=== PATIENT | male | born 1960 | race Caucasian/White ===

== ENCOUNTER 2018-03-19 11:32 | Day surgery (SDC) | payer OTHER ==
[~2018-03-19] VITALS: Ht 167.6 cm; Wt 75.3 kg
[~2018-03-19 11:32] MED LIST: ASPI81EC PO; ATOR40TA PO; CARV3.125 PO; LEVSOD50 PO; LISI5 PO; LOSA25 PO; Lipo-Flavonoid1 EACH PO; MAGNESIUM400 M1 PO; METF500 PO; METO50 PO; Norco 5-325 Ta1 EACH PO; PRAV20 PO; TAMS.4ER PO; WARF1 PO; WARF2 PO; WARF3 PO; WARF4 PO
[2018-03-19] MEDS ORDERED: Oxycodone HCl5 M1 (12:20)
== END 2018-03-19 13:29 | disposition home or self-care (01) ==
LOC: ORSCSDS 11:32
PROVIDERS: Internal Medicine Gastroenterology
PROC: 0DBK8ZX Excision of Ascending Colon, Via Natural or Artificial Opening Endoscopic, Diagnostic (ICD-10-PCS; principal; 2018-03-19 13:00)
DX: Z86.010 Personal history of colon polyps (principal); D12.2 Benign neoplasm of ascending colon; K64.8 Other hemorrhoids; K57.30 Diverticulosis of large intestine without perforation or abscess without bleeding; I25.10 Atherosclerotic heart disease of native coronary artery without angina pectoris; I25.2 Old myocardial infarction; Z95.1 Presence of aortocoronary bypass graft; Z86.73 Personal history of transient ischemic attack (TIA), and cerebral infarction without residual deficits; J44.9 Chronic obstructive pulmonary disease, unspecified; I10 Essential (primary) hypertension; E11.9 Type 2 diabetes mellitus without complications; E03.9 Hypothyroidism, unspecified; E78.5 Hyperlipidemia, unspecified; Z87.891 Personal history of nicotine dependence; Z79.82 Long term (current) use of aspirin; Z79.84 Long term (current) use of oral hypoglycemic drugs; Z79.899 Other long term (current) drug therapy
CPT/HCPCS: 82947; 88305; J7120

== ENCOUNTER 2021-10-07 08:11 | Day surgery (SDC) | payer OTHER ==
[~2021-10-07] VITALS: Ht 167.6 cm; Wt 86.5 kg
[~2021-10-07 08:11] MED LIST changes: +CARV25 PO; -LEVSOD50 PO; +LEVSOD75 PO; +Oxycodone HCl5 M1
[2021-10-07] MEDS ORDERED: [UNRECOGNIZED DRUG - REMARK] PO (08:33)
[2021-10-07] MEDS ORDERED: BAYER PO (08:33)
--- NOTE | 2021-10-07 09:04 | NUR ---
10/07/21 0904 Kenia Allen History, Chart, Medications and Allergies reviewed before start of procedure. Patient confirms NPO status and agrees with scheduled surgery. 3-LEAD EKG REVIEWED WITH PHYSICIAN PRIOR TO START OF PROCEDURE. MONITOR INTACT WITH CONTINUOUS PULSE OXIMETRY AND INTERMITTENT BP. PATIENT DETERMINED TO BE ASA APPROPRIATE FOR PROPOFOL SEDATION PRIOR TO START OF PROCEDURE BY
--- NOTE | 2021-10-07 09:04 | NUR ---
PT ADMITTED TO [facility]. AGREES WITH PLANNED PROCEDURE. STATES LAST BM CLEAR YELLOW. LUNG SOUNDS CLEAR.
--- NOTE | 2021-10-07 10:32 | NUR ---
DR TAVARES ORDERD 12 LEAD EKG. ONE DONE, DR. TAVARES CONSULTED. DR. TAVARES ORDERED ONE MORE EKG WITH FURTHER CONSULT. EKG READINGS SENT TO [facility]. ZACKARY MCKENZIE SPOKE WITH [facility] WHO WILL PRINT THE REPORT AND HAVE SUPERVISOR SPECIAL EFFECTS REVIEW. PT LYING CALMLING IN GURNY WITH NO C/O PAIN OR NAUSEA.
--- NOTE | 2021-10-07 11:13 | NUR ---
DR. LEMONS CARDIOLOGY REVIEWED EKG AND STATED PT HAS RETROGRADE P WAVES AND IS OKAY TO DISCHARGE, PT WITH NO S/S OF HEART PROBLEMS. DR. LEMONS ADVISED PT TO CONTINUE TO SEE CURRENT CUSTOMER EXPERIENCE RETAIL CLERK OR TO CONTACT HIM. DR. TAVARES ADVISED AND OKAYED PT FOR DC.
--- NOTE | 2021-10-07 12:04 | NUR ---
Patient up to Ambulate independently. Gait steady. Discharge instructions reviewed with patient. Patient verbalizes understanding. Copy given to patient to take home. Discharged via wheelchair to private car for ride home.
== END 2021-10-10 03:39 | disposition home or self-care (01) ==
LOC: ORSCMMR 08:11 → ORSCSDS 09:15 → ORD 09:15 → ORSCMMR 09:15
PROVIDERS: Student in an Organized Health Care Education/Training Program
PROC: 0DBL8ZX Excision of Transverse Colon, Via Natural or Artificial Opening Endoscopic, Diagnostic (ICD-10-PCS; principal; 2021-10-07 09:15)
PROC: 0DBM8ZX Excision of Descending Colon, Via Natural or Artificial Opening Endoscopic, Diagnostic (ICD-10-PCS; principal; 2021-10-07 09:15)
PROC: 0DBN8ZX Excision of Sigmoid Colon, Via Natural or Artificial Opening Endoscopic, Diagnostic (ICD-10-PCS; principal; 2021-10-07 09:15)
PROC: 0DBE8ZX Excision of Large Intestine, Via Natural or Artificial Opening Endoscopic, Diagnostic (ICD-10-PCS; principal; 2021-10-07 09:15)
PROC: 0DBH8ZX Excision of Cecum, Via Natural or Artificial Opening Endoscopic, Diagnostic (ICD-10-PCS; principal; 2021-10-07 09:15)
DX: Z12.11 Encounter for screening for malignant neoplasm of colon (principal); Z86.010 Personal history of colon polyps; D12.2 Benign neoplasm of ascending colon; D12.0 Benign neoplasm of cecum; D12.3 Benign neoplasm of transverse colon; D12.5 Benign neoplasm of sigmoid colon; K57.30 Diverticulosis of large intestine without perforation or abscess without bleeding; K64.8 Other hemorrhoids; E11.9 Type 2 diabetes mellitus without complications; I25.10 Atherosclerotic heart disease of native coronary artery without angina pectoris; I10 Essential (primary) hypertension; E03.9 Hypothyroidism, unspecified; J44.9 Chronic obstructive pulmonary disease, unspecified; Z79.84 Long term (current) use of oral hypoglycemic drugs; Z79.4 Long term (current) use of insulin; Z79.899 Other long term (current) drug therapy
CPT/HCPCS: 88305; 93005; 93010; J2704; J7120

== ENCOUNTER 2024-09-23 09:17 | Day surgery (SDC) | payer OTHER ==
[~2024-09-23] VITALS: Ht 167.6 cm; Wt 80.0 kg
[~2024-09-23 09:17] MED LIST changes: +BAYER PO; +Lactated Ringer's 1,000 ML IV ONE; +[UNRECOGNIZED DRUG - REMARK] PO; +propofoL 50 ML IV ONE
[2024-09-23] MEDS ORDERED: ATOR40TA (09:41)
[2024-09-23] MEDS ORDERED: JARDIANCE25 MG (09:42)
[2024-09-23] MEDS ORDERED: Amaryl1 MG (09:42)
[2024-09-23] MEDS ORDERED: LOSA25 (09:42)
[2024-09-23] MEDS ORDERED: MAG OXIDE 400MG (09:43)
[2024-09-23] MEDS ORDERED: LEVSOD88 (09:43)
[2024-09-23] MEDS ORDERED: ASPI81CH (09:44)
[2024-09-23] MEDS ORDERED: IPRAT-ALBUT 0.5-3 ML (09:44)
[2024-09-23] MEDS ORDERED: Lactated Ringer's 1,000 ML IV ONE (10:43)
[2024-09-23 12:49] VITALS: BP 123/79
--- NOTE | 2024-09-23 12:59 | NUR ---
09/23/24 1259 Cassandra Claros S PT. WITH SCATTERED WHEEZES THAT CLEAR WITH COUGH. PT. VERBALIZES HE DOES A NEBULIZER Q AM BUT USES NO INHALERS. PT. VERBALIZES HE GETS CONGESTED IN HIS THROAT & AFTER HIS NEBULIZER "I'M GOOD TO GO."
== END 2024-09-23 12:30 | disposition home or self-care (01) ==
LOC: ORSCSDS 09:17
PROVIDERS: Internal Medicine Gastroenterology
PROC: 0DBK8ZX Excision of Ascending Colon, Via Natural or Artificial Opening Endoscopic, Diagnostic (ICD-10-PCS; principal; 2024-09-23 10:45)
PROC: 0DBN8ZX Excision of Sigmoid Colon, Via Natural or Artificial Opening Endoscopic, Diagnostic (ICD-10-PCS; principal; 2024-09-23 10:45)
PROC: 0DBH8ZX Excision of Cecum, Via Natural or Artificial Opening Endoscopic, Diagnostic (ICD-10-PCS; principal; 2024-09-23 10:45)
DX: Z12.11 Encounter for screening for malignant neoplasm of colon (principal); D12.0 Benign neoplasm of cecum; D12.2 Benign neoplasm of ascending colon; D12.5 Benign neoplasm of sigmoid colon; D17.9 Benign lipomatous neoplasm, unspecified; K57.30 Diverticulosis of large intestine without perforation or abscess without bleeding; Z86.0101 Personal history of adenomatous and serrated colon polyps; Z86.73 Personal history of transient ischemic attack (TIA), and cerebral infarction without residual deficits; I25.2 Old myocardial infarction; E11.9 Type 2 diabetes mellitus without complications; I10 Essential (primary) hypertension; E78.5 Hyperlipidemia, unspecified; I25.5 Ischemic cardiomyopathy; I25.10 Atherosclerotic heart disease of native coronary artery without angina pectoris; Z79.82 Long term (current) use of aspirin; Z79.84 Long term (current) use of oral hypoglycemic drugs; Z79.899 Other long term (current) drug therapy; Z87.891 Personal history of nicotine dependence
CPT/HCPCS: 82947; 88305; 93005; 93010; J2704; J7120

== ENCOUNTER 2025-01-14 04:08 | Inpatient (IN) | payer OTHER ==
[~2025-01-14] VITALS: Ht 167.6 cm; Wt 77.7 kg
[~2025-01-14 04:08] MED LIST changes: +ASPI81CH; +ATOR40TA; +Amaryl1 MG; +IPRAT-ALBUT 0.5-3 ML; +JARDIANCE25 MG; +LEVSOD88; +LOSA25; -Lactated Ringer's 1,000 ML IV ONE; +MAG OXIDE 400MG; -propofoL 50 ML IV ONE
[2025-01-14 04:34] LABS: BASOPHILS ABSOLUTE AUTO 0.06 K/mm3 (0.00-0.23); BASOPHILS PERCENT AUTO 1 % (0-2); EOSINOPHILS ABSOLUTE AUTO 0.21 K/mm3 (0.00-0.68); EOSINOPHILS PERCENT AUTO 2 % (0-6); Hemoglobin 16.9 g/dL (13.5-17.5); IMMATURE GRAN ABSOLUTE AUTO 0.06 K/mm3 (0.00-0.10); IMMATURE GRAN PERCENT AUTO 1 % (0-1); LYMPHOCYTES ABSOLUTE AUTO 2.03 K/mm3 (0.84-5.20); LYMPHOCYTES PERCENT AUTO 21 % (21-46); MONOCYTES ABSOLUTE AUTO 0.79 K/mm3 (0.16-1.47); MONOCYTES PERCENT AUTO 8 % (4-13); Mean Corpuscular HGB 29.2 pg (26.0-34.0); Mean Corpuscular HGB Conc 33.1 g/dL (31.5-36.5); Mean Corpuscular Volume 88 fL (80-100); Mean Platelet Volume 10.3 fL (9.1-12.4); NEUTROPHILS ABSOLUTE AUTO 6.45 K/mm3 (1.96-9.15); NEUTROPHILS PERCENT AUTO 67 % (41-73); Platelet Count 230 K/mm3 (150-400); RDW Coefficient Variation 13.5 % (11.7-14.2); RDW Standard Deviation 43.5 fL (35.1-46.3); Red Blood Cell Count 5.78 M/mm3 (4.30-5.90)
[2025-01-14 04:44] LABS: International Normalized Ratio 1.02; Prothrombin Time Results 10.9 Sec (9.7-11.5)
[2025-01-14 04:53] LABS: Alanine Aminotransfer (ALT/SGP 35 U/L (12-78); Albumin, Blood 3.8 g/dL (3.4-5.0); Alk Phos 135 U/L (50-136); Anion Gap 11 mmol/L (3-11); Aspartate Aminotrans (AST/SGOT 26 U/L (12-37); Bilirubin, Total 1.1 mg/dL (0.1-1.0); Blood Urea Nitrogen 23 mg/dL (8-24); Bun/Creatinine Ratio 18.9 (12.0-20.0); CO2, Blood 25 mmol/L (21-32); Calcium, Blood 9.4 mg/dL (8.5-10.1); Chloride, Blood 106 mmol/L (98-108); Creatinine, Blood 1.22 mg/dL (0.60-1.20); Ethanol (Alcohol), Blood, Med <3 mg/dL; Glomerular Filtration Rate 66 (60-); Glucose, Blood 162 mg/dL (70-99); Potassium, Blood 3.7 mmol/L (3.5-5.5); Sodium, Blood 138 mmol/L (136-145); Total Protein, Blood 7.8 g/dL (6.4-8.2)
[2025-01-14] MEDS ORDERED: Ondansetron HCl 2 MG / ML 2ML Vial IV PRN (06:25)
[2025-01-14] MEDS ORDERED: Acetaminophen 325 MG TABLET PO PRN (06:25)
[2025-01-14] MEDS ORDERED: ATROVENT HFA12.9 GM INH (07:09)
[2025-01-14] MEDS ORDERED: LOSARTAN POTASS25 M2 PO (07:09)
[2025-01-14] MEDS ORDERED: LEVOTHYROXINE112 M18 PO (07:09)
[2025-01-14] MEDS ORDERED: METOPROLOL SUCC25 MG PO (07:10)
[2025-01-14] MEDS ORDERED: GLIMEPIRIDE2 M2 PO (07:10)
[2025-01-14] MEDS ORDERED: LIPITOR80 MG PO (07:10)
[2025-01-14] MEDS ORDERED: [UNRECOGNIZED DRUG - CODE] PO (07:10)
[2025-01-14] MEDS ORDERED: JARDIANCE25 MG PO (07:11)
[2025-01-14] MEDS ORDERED: Aspir 8181 MG PO (07:33)
[2025-01-14] MEDS ORDERED: Docusate Sodium 100 MG Cap PO SCH (09:00)
[2025-01-14] MEDS ORDERED: Aspirin 81 MG Chew PO SCH (09:00)
[2025-01-14] MEDS ORDERED: Enoxaparin 40 MG/0.4 ML SYR SC SCH (09:00)
[2025-01-14] MEDS ORDERED: Atorvastatin 40 MG Tab PO SCH (09:00)
--- NOTE | 2025-01-14 09:45 | NUR ---
ADMISSION PT ADMITTED FROM THE ER. TRANSFERED TO BED FROM WHEELCHAIR WITH MINIMAL ASSIST. PT HAS GARBLED SPEECH, BUT IS ORIENTED X4. ORIENTED TO ROOM. CALL LIGHT IN REACH. PT DENIES PAIN AT THIS TIME. NPO WHILE AWAITING FOR SPEECH THERAPY CONSULT. PT DENIES OTHER NEEDS AT THIS TIME.
[2025-01-14 09:48] VITALS: BP 142/91
[2025-01-14 11:34] VITALS: BP 114/78
[2025-01-14] MEDS ORDERED: Ipratropium/Albuterol SulF 2.5-0.5MG/3 ML Amp INH PRN (15:20)
[2025-01-14] MEDS ORDERED: NS 1,000 ML IV SCH (15:20)
[2025-01-14 15:39] VITALS: BP 165/88
[2025-01-14] MEDS ORDERED: IPRATROPIUM BROMIDE INH (17:03)
--- NOTE | 2025-01-14 17:57 | NUR ---
SHIFT SUMMARY PT ADMITTED TODAY. PT HAD MRI COMPLETED TODAY. WORKED WITH PHYSICAL/OCCUPATIONAL THERAPY TODAY. PT AMBULATED THE LOOP ON THE FLOOR WITH PHYSICAL THERAPY AND TOLERATED WELL WITH A LITTLE ASSISTANCE. PT HAS SOME UNCOORDINATION IN RELATION TO HIS L LEG. SPEECH THERAPY IN TO SEE THE PATIENT THIS AFTERNOON, PT REMAINS NPO AT THIS TIME AFTER EVAL. ST WILL BE BACK TOMORROW TO REEVATUATE. DR. MARTÍNEZ NOTIFIED OF CONTINUED NPO STATUS. IV FLUIDS STARTED FOR HYDRATION. PO MEDS HELD T/O SHIFT. PT IS VERY MOTIVATED AND HOPEFUL TO IMPROVE. NO OTHER ACUTE CHANGES IN ASSESSMENT AT THIS TIME. VS REVIEWED. CALL LIGHT IN REACH. DENIES OTHER NEEDS AT THIS TIME.
[2025-01-14] MEDS ORDERED: HydrALAZINE HCl 20 MG / ML 1ML Vial IV PRN (18:35)
[2025-01-14] MEDS ORDERED: Clopidogrel Bisulfate 75 MG Tab PO SCH (19:00)
[2025-01-14 19:52] VITALS: BP 149/83
[2025-01-15] MEDS ORDERED: Insulin Regular 100 UNIT/ML 10ML Vial SC SCH
[2025-01-15 03:55] VITALS: BP 109/80
[2025-01-15 04:51] LABS: BASOPHILS ABSOLUTE AUTO 0.07 K/mm3 (0.00-0.23); BASOPHILS PERCENT AUTO 1 % (0-2); EOSINOPHILS PERCENT AUTO 1 % (0-6); Hematocrit 53.5 % (37.0-53.0); Hemoglobin 17.4 g/dL (13.5-17.5); IMMATURE GRAN ABSOLUTE AUTO 0.02 K/mm3 (0.00-0.10); IMMATURE GRAN PERCENT AUTO 0 % (0-1); LYMPHOCYTES ABSOLUTE AUTO 1.71 K/mm3 (0.84-5.20); LYMPHOCYTES PERCENT AUTO 25 % (21-46); MONOCYTES ABSOLUTE AUTO 0.63 K/mm3 (0.16-1.47); MONOCYTES PERCENT AUTO 9 % (4-13); Mean Corpuscular HGB 29.4 pg (26.0-34.0); Mean Corpuscular HGB Conc 32.5 g/dL (31.5-36.5); Mean Corpuscular Volume 90 fL (80-100); Mean Platelet Volume 10.2 fL (9.1-12.4); NEUTROPHILS ABSOLUTE AUTO 4.43 K/mm3 (1.96-9.15); NEUTROPHILS PERCENT AUTO 64 % (41-73); Platelet Count 218 K/mm3 (150-400); RDW Coefficient Variation 13.6 % (11.7-14.2); RDW Standard Deviation 44.9 fL (35.1-46.3); Red Blood Cell Count 5.92 M/mm3 (4.30-5.90); White Blood Cell Count 6.96 K/mm3 (4.00-11.30)
[2025-01-15 05:20] LABS: Alanine Aminotransfer (ALT/SGP 31 U/L (12-78); Albumin, Blood 3.8 g/dL (3.4-5.0); Alk Phos 126 U/L (50-136); Anion Gap 12 mmol/L (3-11); Aspartate Aminotrans (AST/SGOT 26 U/L (12-37); Bilirubin, Total 1.4 mg/dL (0.1-1.0); Blood Urea Nitrogen 18 mg/dL (8-24); Bun/Creatinine Ratio 15.5 (12.0-20.0); CHOL/HDL RATIO 2.9; CO2, Blood 24 mmol/L (21-32); Calcium, Blood 9.3 mg/dL (8.5-10.1); Chloride, Blood 110 mmol/L (98-108); Cholesterol 129 mg/dL (50-200); Creatinine, Blood 1.16 mg/dL (0.60-1.20); Glomerular Filtration Rate 70 (60-); Glucose, Blood 122 mg/dL (70-99); HDL Cholesterol 44 mg/dL (>39); LDL/HDL RATIO 1.2; Low Density Lipoprotein Chol 52 mg/dL (0-110); Magnesium, Blood 2.2 mg/dL (1.6-2.4); Sodium, Blood 142 mmol/L (136-145); Thyroid Stimulating Hormone 0.693 uIU/mL (0.360-4.800); Total Protein, Blood 7.8 g/dL (6.4-8.2); Triglycerides 166 mg/dL (30-160); Very Low Density Lipoprot Chol 33 mg/dL (6-32)
--- NOTE | 2025-01-15 05:53 | NUR ---
Shift Summary No acute changes. Q4 neuro checks, pt has slight defecits on L side and L sided facial droop, eyes PERRLA, speech mumbled. No change in neuro condition t/o the night. Rcving NS @ 100 as ordered. Pt uses urinal at the bedside independently. He slept well t/o most of the night.
[2025-01-15] MEDS ORDERED: Levothyroxine Sodium 0.112 MG Tab PO SCH (06:00)
[2025-01-15 07:40] VITALS: BP 147/83
[2025-01-15 11:16] VITALS: BP 144/84
[2025-01-15 15:17] VITALS: BP 148/77
--- NOTE | 2025-01-15 18:01 | NUR ---
SHIFT SUMMARY A&O X4. NEUROCHECKS Q4H. LEFT SIDED FACIAL DROOPING REMAINS. PERLA. RIVERA IS MUMBLES. NS RUNNING AT 100ML/HR. SEEN BY NICOLE GAMBOA, REMAINS ON NPO. BARIUM SWALLOW SCHEDULED FOR 01/16. DOBHOFF PLACED IN RIGHT NOSTRIL. TUBE FEEDING INITIATED. HAD VISIT FROM THERAPY DOG. TELE: BBB. BED IN LOW POSITION AND CALL LIGHT WITHIN REACH.
[2025-01-15 19:06] VITALS: BP 149/91
[2025-01-15 23:51] VITALS: BP 118/75
[2025-01-16 04:03] VITALS: BP 132/77
[2025-01-16 05:47] LABS: Magnesium, Blood 2.4 mg/dL (1.6-2.4); Phosphorus, Blood 2.6 mg/dL (2.5-4.9)
--- NOTE | 2025-01-16 05:51 | NUR ---
SHIFT SUMMARY PT SLEPT INTERMITTENTLY DURING THE NIGHT. TOLERATING TUBE FEED AT ORDERED RATE OF 45ML/HR WITH WATER 30ML Q 4HRS. PT DOES HAVE A MOIST COUGH, BUT THIS IS A CHRONIC COUGH. PT EDUCATED TO KEEP HOB ELEVATED WITH THE TUBE FEEDING TO REDUCE THE RISK OF ASPIRATION. PT UP TO THE BATHROOM WITH FWW AND SBA. NEURO CHECKS DONE Q 4HRS WITHOUT CHANGE. PT CONTINUES TO HAVE LEFT SIDED FACIAL DROOP, MUMBLED SPEECH, OCCASIONAL WORD-FINDING DIFFICULTIES, AND SOME SLIGHT LEFT SIDED WEAKNESS. BED IN LOWEST POSITION, CALL LIGHT WITHIN REACH, BED ALARM ON, SIDERAILS UP X2.
[2025-01-16 07:35] VITALS: BP 130/87
[2025-01-16 15:41] VITALS: BP 150/82
--- NOTE | 2025-01-16 18:23 | NUR ---
SHIFT SUMMARY A&O X4. TELE: AFIB @100. NO ACUTE CHANGES. HOLD TUBE FEEDING AFTER MIDNIGHT. SCHEDULED FOR PEG TUBE PLACEMENT AT 0800 ON 01/17/2025. ORDER FOR IV FLUIDS . NEURO CHECKS Q4H. FAMILY IN FOR VISIT. BED IN LOW POSITION. CALLLIGHT WITH REACH
[2025-01-16 20:25] VITALS: BP 140/83
[2025-01-17] VITALS (15 sets, daily range): BP systolic 116–161; BP diastolic 56–89
[2025-01-17 06:03] LABS: Magnesium, Blood 2.2 mg/dL (1.6-2.4); Phosphorus, Blood 3.5 mg/dL (2.5-4.9)
--- NOTE | 2025-01-17 06:34 | NUR ---
SHIFT SUMMARY PT TOLERATED TUBE FEEDING AT ORDERED RATE OF 60ML/HR WITH 200ML WATER FLUSH Q4 UNTIL TUBE FEEDING TURNED OFF AT MIDNIGHT FOR PROCEDURE TODAY. NEURO CHECKS Q4 HRS WITH NO CHANGES NOTED. PT SLEPT INTERMITTENTLY DURING THE NIGHT. BED IN LOWEST POSITION, CALL LIGHT WITHIN REACH, SIDERAILS UP X2.
[2025-01-17] MEDS ORDERED: propofoL 20 ML IV ONE ×2 (07:38→08:52)
[2025-01-17] MEDS ORDERED: Ondansetron HCl 2 MG / ML 2ML Vial ONE ×2 (07:39→09:55)
[2025-01-17] MEDS ORDERED: SuccINYLCHOLINE Chloride 100 MG/5 ML 5MLSYR ONE (07:39)
[2025-01-17] MEDS ORDERED: Lidocaine HCl 2% 20 ML MDV ONE (07:39)
[2025-01-17] MEDS ORDERED: FentaNYL Citrate 50 MCG/ML 2 ML Injection ONE (07:53)
--- NOTE | 2025-01-17 07:54 | NUR ---
NOTE DAY SURG NOTIFIED VIA [facility], GASTROENTEROLOGY PHYSICIAN FOR SURG AT 0830. THEY CAME TO TRANSFER PT AT 0755. PT TRANSFERED VIA BED TO DAY SURG. DAY CLAY ARTIST NOTIFIED TO HOLD COZAR AND METOPROLOL TILL POST SURG.
[2025-01-17 08:00] LABS: BASOPHILS ABSOLUTE AUTO 0.05 K/mm3 (0.00-0.23); BASOPHILS PERCENT AUTO 1 % (0-2); EOSINOPHILS ABSOLUTE AUTO 0.26 K/mm3 (0.00-0.68); EOSINOPHILS PERCENT AUTO 3 % (0-6); Hematocrit 48.5 % (37.0-53.0); Hemoglobin 15.5 g/dL (13.5-17.5); IMMATURE GRAN ABSOLUTE AUTO 0.01 K/mm3 (0.00-0.10); IMMATURE GRAN PERCENT AUTO 0 % (0-1); LYMPHOCYTES ABSOLUTE AUTO 2.06 K/mm3 (0.84-5.20); LYMPHOCYTES PERCENT AUTO 27 % (21-46); MONOCYTES ABSOLUTE AUTO 0.72 K/mm3 (0.16-1.47); MONOCYTES PERCENT AUTO 9 % (4-13); Mean Corpuscular HGB 29.1 pg (26.0-34.0); Mean Corpuscular Volume 91 fL (80-100); Mean Platelet Volume 10.6 fL (9.1-12.4); NEUTROPHILS ABSOLUTE AUTO 4.63 K/mm3 (1.96-9.15); NEUTROPHILS PERCENT AUTO 60 % (41-73); Platelet Count 186 K/mm3 (150-400); RDW Coefficient Variation 13.8 % (11.7-14.2); RDW Standard Deviation 46.5 fL (35.1-46.3); Red Blood Cell Count 5.32 M/mm3 (4.30-5.90); White Blood Cell Count 7.73 K/mm3 (4.00-11.30)
[2025-01-17 08:13] LABS: Albumin, Blood 3.6 g/dL (3.4-5.0); Bilirubin, Total 0.8 mg/dL (0.1-1.0); Bun/Creatinine Ratio 14.9 (12.0-20.0); Calcium, Blood 9.5 mg/dL (8.5-10.1); Creatinine, Blood 0.94 mg/dL (0.60-1.20); Globulin, Blood 3.6 g/dL (2.2-4.0); Potassium, Blood 3.9 mmol/L (3.5-5.5); Total Protein, Blood 7.2 g/dL (6.4-8.2)
[2025-01-17] MEDS ORDERED: Lactated Ringer's 1,000 ML IV SCH (08:20)
[2025-01-17] MEDS ORDERED: Phenylephrine HCl 100 MCG/ML-NS 10MLSYR (1MG/10ML) ONE (08:29)
[2025-01-17] MEDS ORDERED: CeFAZolin Sodium 2,000 MG in NS 100 ML IV SCH (08:35)
[2025-01-17] MEDS ORDERED: Metoprolol Succinate 25 MG TABCR PO SCH (09:00)
[2025-01-17] MEDS ORDERED: Losartan Potassium 25 MG Tab PO SCH (09:00)
--- NOTE | 2025-01-17 09:03 | NUR ---
01/17/25 0903 Shani Renteria MAC CASE WITH DR. CANALES IN OR 2; SEE ANESTHESIA RECORDS.
[2025-01-17] MEDS ORDERED: Lactated Ringer's 1,000 ML IV ONE (09:10)
[2025-01-17] MEDS ORDERED: Dexamethasone Sod Phos 10 MG/ML 1ML VIAL ONE (09:55)
--- NOTE | 2025-01-17 13:02 | NUR ---
NOTE PT BACK FROM OR. NURSE NOTIFY CAN USE PEG TUBE. VERIFIED WITH DR. GILES. PT REPORTES L FLANK PAIN, GOT TYLENOL, NOTIFIED HOSPITALIST.
[2025-01-17] MEDS ORDERED: OxyCODONE HCL 5 MG TAB PO PRN (15:10)
--- NOTE | 2025-01-17 19:34 | NUR ---
SHIFT SUMMARY PT A&OX4. PT ADMITTED DUE TO CVA. NEURO CHECKS COMPLETED Q4. PT HAS L FACIAL DROOP. PT HAD PEG TUBE PLACED TODAY. PT HAS Q6 BLOOD SUGAR CHECK ORDERED. COVERAGE NOT INDICATED TODAY. PT NPO. PT REPORTS CHRONIC PAIN. PAIN MANAGED PER EMAR. FEEDINGS THROUGH PEG TUBE STARTED AT 1500. SUCTION AT BEDSIDE, FOR ORAL CARE. PT ON TELE, TELE REPORTED ST ELEVATION AND DEPRESSION TODAY, DR. WEST NOTIFIED, ORDERED EKG AND TROPONIN LABS. EKG COMPLETE AND REVIEWED BY . NO NEW ORDERS, PT REPORTS NO CHEST PAIN DISCOMFORT. PT IN BED, BED IN LOWEST POSITION, CALL LIGHT IN REACH. VSS. PT IS SBA TO TOILET. PEG TUBE SITE, C/D/I WITH SPLIT GAUZE IN PLACE.
--- NOTE | 2025-01-17 20:29 | NUR ---
CALLED HOSPITALIST TO GET SOMETHING TO HELP PT SLEEP. DR ORDERED 5MG MELATONIN CRUSHED IN PEG TUBE PRN/HS DOSING
[2025-01-17] MEDS ORDERED: Metoprolol Tartrate 25 MG Tab PO SCH ×2 (21:00)
[2025-01-17] MEDS ORDERED: Melatonin 5 MG Tablet PO SCH (21:00)
[2025-01-17] MEDS ORDERED: Metoprolol Tartrate 25 MG Tab PT SCH (21:00)
--- NOTE | 2025-01-18 04:38 | NUR ---
SHIFT SUMM: PT IS A 64 YO FULL CODE MALE ADMITTED FOR CVA AND L SIDED WEAKNESS. PT IS A&OX4 W/SLURRED HARD TO UNDERSTAND SPEECH FROM CVA. PT FAILED SWALLOW STUDY AND HAS DYSPHAGIA SO PEG TUBE WAS PLACED YESTERDAY. PT IS RECIEVING TF AT 60ML/HR.PT IS ON TELE W/SR IN THE 60'S A BBB AND A 1ST DEG BLOCK.PT IS ON RA. PT HAS SOME TENDERNESS WHERE PEG TUBE WAS PLACED. PT RECIEVED 2 UNIT OF REG INSULIN FOR 209 BS AND IS A Q6 BS CHECK. PT USES URINAL AND IS A SBA TO BATHROOM. PATIENT HAS A PATENT LFA IV. PT IS A Q4 NEURO CHECKS AND CONTINUES TO HAVE L FACIAL DROOP. PT HAS CALL LIGHT IN REACH AND CALLS TO MAKE NEEDS KNOWN.
[2025-01-18 04:45] LABS: BASOPHILS ABSOLUTE AUTO 0.03 K/mm3 (0.00-0.23); BASOPHILS PERCENT AUTO 0 % (0-2); EOSINOPHILS ABSOLUTE AUTO 0.19 K/mm3 (0.00-0.68); EOSINOPHILS PERCENT AUTO 3 % (0-6); Hematocrit 47.3 % (37.0-53.0); Hemoglobin 15.5 g/dL (13.5-17.5); IMMATURE GRAN ABSOLUTE AUTO 0.02 K/mm3 (0.00-0.10); IMMATURE GRAN PERCENT AUTO 0 % (0-1); LYMPHOCYTES ABSOLUTE AUTO 1.57 K/mm3 (0.84-5.20); LYMPHOCYTES PERCENT AUTO 20 % (21-46); MONOCYTES ABSOLUTE AUTO 0.65 K/mm3 (0.16-1.47); MONOCYTES PERCENT AUTO 8 % (4-13); Mean Corpuscular HGB 29.7 pg (26.0-34.0); Mean Corpuscular HGB Conc 32.8 g/dL (31.5-36.5); Mean Corpuscular Volume 91 fL (80-100); Mean Platelet Volume 10.4 fL (9.1-12.4); NEUTROPHILS ABSOLUTE AUTO 5.24 K/mm3 (1.96-9.15); NEUTROPHILS PERCENT AUTO 68 % (41-73); Platelet Count 178 K/mm3 (150-400); RDW Coefficient Variation 13.6 % (11.7-14.2); RDW Standard Deviation 45.4 fL (35.1-46.3); Red Blood Cell Count 5.22 M/mm3 (4.30-5.90)
[2025-01-18 05:05] VITALS: BP 143/80
[2025-01-18 05:06] LABS: Albumin, Blood 3.3 g/dL (3.4-5.0); Albumin/Globulin Ratio 0.9 (0.8-1.8); Bilirubin, Total 0.8 mg/dL (0.1-1.0); Bun/Creatinine Ratio 17.4 (12.0-20.0); Calcium, Blood 9.9 mg/dL (8.5-10.1); Creatinine, Blood 0.92 mg/dL (0.60-1.20); Globulin, Blood 3.8 g/dL (2.2-4.0); Phosphorus, Blood 3.9 mg/dL (2.5-4.9); Potassium, Blood 4.2 mmol/L (3.5-5.5); Total Protein, Blood 7.1 g/dL (6.4-8.2)
[2025-01-18 07:29] VITALS: BP 149/80
[2025-01-18 11:10] VITALS: BP 132/85
[2025-01-18 15:55] VITALS: BP 153/75
--- NOTE | 2025-01-18 18:11 | NUR ---
NEONATAL PEDIATRIC NURSE SHIFT SUMMARY: NO ACUTE CHANGES T/O SHIFT. PATIENT IS A&OX4, PLEASANT AND COOPERTAIVE c CARE. VERBALIZES NEEDS AND USES WRITTEN COMMUNICATION TECHNIQUE TO UNDERSTAND WHAT HE NEEDS. PATIENT CALLS APPROPRIATELY. PATIENT IS A SBA TO [facility] AND TOLERATES IT WELL. PATIENT DENIES DIZZINESS, HEADACHES. PATIENT IS ON TELE RUNNING SR 70'S BPM c BBB, [place] [facility] BLOCK AND BBB. PATIENT DENIES CHEST PAIN/PRESSURE. PATIENT IS ON RA SATTING ABOVE 95%, PATIENT DENIES SOB. PATIENT IS NPO HAS CONTINUOUS TUBE FEEDINGS W/ PEG TUBE. RUNNING @ 60MLS/HR. PATIENT IS CONTINENT BLADDER/BOWEL PATIENT HAS NOT HAD A BM THIS SHIFT. PATIENT REPORTED DISCOMFORT IN THE LOWER ABDOMEN TRIED HAVING A BM. PATIENT RECIEVED SCHEDULED MEDS PER EMAR THROUGH PEG TUBE. BLOOD SUGARS CHECKED AND SCHEDULED INSULIN GIVEN PER EMAR WITH LOW SLIDING SCALE. PIV SALINE LOCKED. PATIENT IS LAYING IN BED W/ HOB AT 45 DEGREES. BED IN LOWEST POSITION, CALL LIGHT IN REACH.
[2025-01-18 19:32] VITALS: BP 152/81
[2025-01-18 23:48] VITALS: BP 136/75
--- NOTE | 2025-01-19 03:21 | NUR ---
SHIFT SUMMARY PATIENT APPEARS TO BE RESTING COMFORTABLY AT THIS TIME. FEEDING TUBE IS INFUSING AT 60 ML/HR INTO PEG TUBE WITHOUT COMPLICATIONS. PATIENT HAS BEEN ORIENTED X4. HIS SPEECH REMAINS GARBLED. NO NEURO CHANGES ON THIS SHIFT. VITAL SIGNS ARE STABLE. CALL LIGHT IS WITHIN REACH. PATIENT IS USING HIS CALL LIGHT APPROPRIATELY AND HAS AGREED TO CALL WITH ANY REQUESTS OR NEEDS
[2025-01-19 04:01] VITALS: BP 153/75
[2025-01-19 05:08] LABS: BASOPHILS ABSOLUTE AUTO 0.04 K/mm3 (0.00-0.23); BASOPHILS PERCENT AUTO 1 % (0-2); EOSINOPHILS ABSOLUTE AUTO 0.18 K/mm3 (0.00-0.68); EOSINOPHILS PERCENT AUTO 2 % (0-6); Hematocrit 46.5 % (37.0-53.0); Hemoglobin 15.8 g/dL (13.5-17.5); IMMATURE GRAN ABSOLUTE AUTO 0.02 K/mm3 (0.00-0.10); IMMATURE GRAN PERCENT AUTO 0 % (0-1); LYMPHOCYTES ABSOLUTE AUTO 1.62 K/mm3 (0.84-5.20); LYMPHOCYTES PERCENT AUTO 19 % (21-46); MONOCYTES ABSOLUTE AUTO 0.67 K/mm3 (0.16-1.47); MONOCYTES PERCENT AUTO 8 % (4-13); Mean Corpuscular HGB 29.9 pg (26.0-34.0); Mean Corpuscular Volume 88 fL (80-100); Mean Platelet Volume 10.4 fL (9.1-12.4); NEUTROPHILS ABSOLUTE AUTO 6.04 K/mm3 (1.96-9.15); NEUTROPHILS PERCENT AUTO 71 % (41-73); Platelet Count 190 K/mm3 (150-400); RDW Coefficient Variation 13.3 % (11.7-14.2); RDW Standard Deviation 43.3 fL (35.1-46.3); Red Blood Cell Count 5.29 M/mm3 (4.30-5.90); White Blood Cell Count 8.57 K/mm3 (4.00-11.30)
[2025-01-19 05:37] LABS: Albumin, Blood 3.3 g/dL (3.4-5.0); Albumin/Globulin Ratio 0.9 (0.8-1.8); Bilirubin, Total 0.8 mg/dL (0.1-1.0); Bun/Creatinine Ratio 19.3 (12.0-20.0); Calcium, Blood 9.8 mg/dL (8.5-10.1); Creatinine, Blood 0.78 mg/dL (0.60-1.20); Globulin, Blood 3.8 g/dL (2.2-4.0); Total Protein, Blood 7.1 g/dL (6.4-8.2)
[2025-01-19 07:26] VITALS: BP 149/78
[2025-01-19] MEDS ORDERED: Enoxaparin 40 MG/0.4 ML SYR SC SCH (11:00)
[2025-01-19 11:43] VITALS: BP 153/79
[2025-01-19 15:26] VITALS: BP 150/76
[2025-01-19] MEDS ORDERED: Polyethylene Glycol 3350 17 gm PO PRN (18:15)
--- NOTE | 2025-01-19 18:41 | NUR ---
SHIFT SUMMARY PT AOX4, COOPERATIVE, ABLE TO MAKE NEEDS KNOWN. HAS SIGNS OF CVA, THOUGH EXTERMITY STRENGTH INTACT. DOES HAVE GARBLED SPEECH. SWITCHED FROM BASAL TUBE FEEDING TO BOLUS FEEDING TID. DID HOLD 1700 DOSE DUE TO POSSIBLE CONSTIPATION AND BLOATING. ADMINISTERED BOWEL MEDS PER EMAR. TUBE FEEDING ORDER IN AND BOTTLES OUTSIDE ROOM. BED IN LOWEST POSITION, CALL LIGHT WITHIN REACH.
[2025-01-19 19:41] VITALS: BP 162/82
[2025-01-19 23:36] VITALS: BP 146/86
--- NOTE | 2025-01-20 03:13 | NUR ---
SHIFT SUMMARY PATIENT APPEARS TO BE SLEEPING COMFORTABLY AT THIS TIME. HIS STOMACH HAS BEEN DISTENDED TONIGHT AND HIS BS ARE HYPOACTIVE. PATIENT HAD A DOSE OF MIRALEX AT 1800 AND HE IS CONSTIPATED. HE ALSO HAD A STOOL SOFTENER AT 2100. VITAL SIGNS ARE STABLE . PATIENT IS ORIENTED X4. HE HAS HIS CALL LIGHT WITHIN REACH. SAFETY PRECAUTIONS ARE BEING MAINTAINED
[2025-01-20 03:36] VITALS: BP 149/93
[2025-01-20 05:22] LABS: BASOPHILS ABSOLUTE AUTO 0.06 K/mm3 (0.00-0.23); BASOPHILS PERCENT AUTO 1 % (0-2); EOSINOPHILS ABSOLUTE AUTO 0.26 K/mm3 (0.00-0.68); EOSINOPHILS PERCENT AUTO 3 % (0-6); Hemoglobin 16.7 g/dL (13.5-17.5); IMMATURE GRAN ABSOLUTE AUTO 0.03 K/mm3 (0.00-0.10); IMMATURE GRAN PERCENT AUTO 0 % (0-1); LYMPHOCYTES ABSOLUTE AUTO 1.48 K/mm3 (0.84-5.20); LYMPHOCYTES PERCENT AUTO 18 % (21-46); MONOCYTES ABSOLUTE AUTO 0.67 K/mm3 (0.16-1.47); MONOCYTES PERCENT AUTO 8 % (4-13); Mean Corpuscular HGB Conc 34.1 g/dL (31.5-36.5); Mean Corpuscular Volume 88 fL (80-100); Mean Platelet Volume 10.3 fL (9.1-12.4); NEUTROPHILS ABSOLUTE AUTO 5.95 K/mm3 (1.96-9.15); NEUTROPHILS PERCENT AUTO 70 % (41-73); Platelet Count 199 K/mm3 (150-400); RDW Coefficient Variation 13.2 % (11.7-14.2); RDW Standard Deviation 42.9 fL (35.1-46.3); Red Blood Cell Count 5.57 M/mm3 (4.30-5.90); White Blood Cell Count 8.45 K/mm3 (4.00-11.30)
[2025-01-20 05:51] LABS: Albumin, Blood 3.4 g/dL (3.4-5.0); Albumin/Globulin Ratio 0.9 (0.8-1.8); Bilirubin, Total 1.1 mg/dL (0.1-1.0); Bun/Creatinine Ratio 19.2 (12.0-20.0); Calcium, Blood 9.8 mg/dL (8.5-10.1); Creatinine, Blood 0.83 mg/dL (0.60-1.20); Globulin, Blood 3.9 g/dL (2.2-4.0); Potassium, Blood 4.2 mmol/L (3.5-5.5); Total Protein, Blood 7.3 g/dL (6.4-8.2)
[2025-01-20 07:56] VITALS: BP 148/77
[2025-01-20 10:56] VITALS: BP 114/75
[2025-01-20] MEDS ORDERED: Bisacodyl 10 MG Supp PR PRN (11:05)
[2025-01-20] MEDS ORDERED: Docusate Sodium Liquid 100 MG UDC PT PRN (11:05)
[2025-01-20] MEDS ORDERED: Magnesium Hydroxide Conc 10 ML UDC PT PRN (11:05)
[2025-01-20 14:28] VITALS: BP 115/81
[2025-01-20] MEDS ORDERED: CLOP75 PO (15:45)
--- NOTE | 2025-01-20 17:17 | NUR ---
PT DISCHARGED HOME WITH SPOUSE. EDUCATION PROVIDED ON STROKE AND PEG TUBE CARE AND FEEDINGS. ALL BELONGINGS SENT WITH PT. PT WHEELED OUT IN WHEEL CHAIR.
== END 2025-01-20 17:05 | disposition home or self-care (01) | DRG 65 ==
LOC: ER 04:08 → MEDS 04:09
PROVIDERS: Emergency Medicine; Internal Medicine; Student in an Organized Health Care Education/Training Program; Surgery; ADMIT Student in an Organized Health Care Education/Training Program
PROC: 0DH63UZ Insertion of Feeding Device into Stomach, Percutaneous Approach (ICD-10-PCS; principal; 2025-01-17 08:30)
DX: I63.89 Other cerebral infarction (principal); E87.1 Hypo-osmolality and hyponatremia; I50.22 Chronic systolic (congestive) heart failure; I13.0 Hypertensive heart and chronic kidney disease with heart failure and stage 1 through stage 4 chronic kidney disease, or unspecified chronic kidney disease; I25.10 Atherosclerotic heart disease of native coronary artery without angina pectoris; J44.9 Chronic obstructive pulmonary disease, unspecified; R29.810 Facial weakness; R47.1 Dysarthria and anarthria; I67.89 Other cerebrovascular disease; G89.29 Other chronic pain; I27.20 Pulmonary hypertension, unspecified; R29.706 NIHSS score 6; E03.9 Hypothyroidism, unspecified; E11.22 Type 2 diabetes mellitus with diabetic chronic kidney disease; I25.5 Ischemic cardiomyopathy; N18.9 Chronic kidney disease, unspecified; R13.12 Dysphagia, oropharyngeal phase; K29.70 Gastritis, unspecified, without bleeding; Z79.84 Long term (current) use of oral hypoglycemic drugs; Z86.73 Personal history of transient ischemic attack (TIA), and cerebral infarction without residual deficits; I25.2 Old myocardial infarction; Z95.1 Presence of aortocoronary bypass graft; Z79.891 Long term (current) use of opiate analgesic; Z79.82 Long term (current) use of aspirin; Z95.5 Presence of coronary angioplasty implant and graft; Z87.891 Personal history of nicotine dependence; Z79.890 Hormone replacement therapy
CPT/HCPCS: 36415; 70450; 70496; 70498; 70551; 71045; 74230; 80053; 80061; 80320; 82947; 83036; 83735; 84100; 84443; 84484; 85025; 85610; 85730; 92526; 92610; 92611; 93005; 93010; 94640; 94664; 94760; 96372; 97112; 97116; 97161; 97165; 97530; 99285-25; A9270; C1769; C8929; G0378; J0330; J0690; J1100; J1650; J1815; J2371; J2405; J2704; J3010; J7030; J7120; Q9957; Q9967

== ENCOUNTER 2025-05-17 21:13 | Emergency (ER) | payer OTHER ==
[~2025-05-17] VITALS: Ht 167.6 cm; Wt 66.2 kg
[~2025-05-17 21:13] MED LIST changes: +ATROVENT HFA12.9 GM INH; +Aspir 8181 MG PO; +CLOP75 PO; +GLIMEPIRIDE2 M2 PO; +IPRATROPIUM BROMIDE INH; +JARDIANCE25 MG PO; +LEVOTHYROXINE112 M18 PO; +LIPITOR80 MG PO; +LOSARTAN POTASS25 M2 PO; +METOPROLOL SUCC25 MG PO; +[UNRECOGNIZED DRUG - CODE] PO
[2025-05-18] MEDS ORDERED: Glucagon 1 MG/KIT VIAL IV ONE (00:25)
[2025-05-18] MEDS ORDERED: Pantoprazole Sodium 40 MG Injection IV ONE (00:25)
[2025-05-18] MEDS ORDERED: ONDA4ODT MM (02:07)
[2025-05-18] MEDS ORDERED: PANT40 PO (02:07)
[2025-05-18 02:47] LABS: Calcium, Ionized (POC) 1.12 mmol/L (1.10-1.46); Chloride (POC) 109 mmol/L (98-108); Creatinine (POC) 1.0 mg/dL (0.8-1.3); Glucose (ISTAT POC) 182 mg/dL (70-99); Hematocrit (POC) 48.0 % (41.0-53.0); Hemoglobin (POC) 16.3 g/dL (13.5-17.5); Potassium (POC) 4.3 mmol/L (3.5-5.5); Sodium (POC) 143 mmol/L (135-148); Total CO2 (POC) 22 mmol/L (21-32)
[2025-05-18 03:45] VITALS: BP 132/76
== END 2025-05-18 03:55 | disposition home or self-care (01) ==
LOC: ER 21:13
PROVIDERS: Emergency Medicine
DX: T18.128A Food in esophagus causing other injury, initial encounter (principal); W44.F3XA Food entering into or through a natural orifice, initial encounter; J44.9 Chronic obstructive pulmonary disease, unspecified; I11.0 Hypertensive heart disease with heart failure; I50.9 Heart failure, unspecified; Z87.442 Personal history of urinary calculi; E11.9 Type 2 diabetes mellitus without complications; Z87.891 Personal history of nicotine dependence
CPT/HCPCS: 71045; 80047; 85014; 96374; 96375; 99283-25; A9270; J1610; J2470; J7120